=== PATIENT | male | born 1990 ===

== ENCOUNTER 2021-08-14 19:37 | Emergency (ER) | payer OTHER, SELFPAY ==
[2021-08-14] MEDS ORDERED: NA CHLORIDE 0.9% 1,000 ML ONE (19:53)
[2021-08-14 20:10] LABS: Basophils % 0.9 % (0-1.3); Hematocrit 43.1 % (39.6-49.0); Lymphocytes % 31.9 % (15.3-44.8); MPV 7.9 fL (7.6-11.3); RBC Red Blood Cell Count 4.91 M/uL (4.33-5.43)
[2021-08-14 20:28] LABS: ALT/SGPT 34 U/L (12-78); AST/SGOT 30 U/L (15-37); Albumin 3.9 g/dL (3.4-5.0); Alkaline Phosphatase 63 U/L (45-117); BUN Blood Urea Nitrogen 13 mg/dL (7-18); Bicarbonate 26 mmol/L (21-32); Bilirubin Direct 0.1 mg/dL (0-0.2); Bilirubin Total 0.5 mg/dL (0.2-1.0); Creatine Phosphokinase 397 U/L (39-308); Glucose Level 237 mg/dL (74-106); Potassium 3.5 mmol/L (3.5-5.1); Protein, Total 7.7 g/dL (6.4-8.2); Sodium Level 142 mmol/L (136-145)
--- NOTE | 2021-08-14 20:39 | RAD REPORT ---
EXAM DESCRIPTION: RAD - Chest Single View - 08/14/2021 8:26 pm CLINICAL HISTORY: AMS, possible overdose Chest pain. COMPARISON: No comparisons FINDINGS: Portable technique limits examination quality. The lungs are grossly clear. The heart is normal in size. No displaced fractures. IMPRESSION: No acute intrathoracic process suspected.
[2021-08-14 21:10] LABS: Protime INR 1.05
--- NOTE | 2021-08-14 21:43 | RAD REPORT ---
EXAM DESCRIPTION: CT - Head Brain Wo Cont - 08/14/2021 9:08 pm CLINICAL HISTORY: AMS, found unresponsive Headache, drowsiness COMPARISON: No comparisons TECHNIQUE: All CT scans are performed using dose optimization technique as appropriate and may inclu de automated exposure control or mA/KV adjustment according to patient size. FINDINGS: No intracranial hemorrhage, hydrocephalus or extra-axial fluid collection.No areas of brai n edema or evidence of midline shift. The paranasal sinuses and mastoids are clear. The calvarium is intact. IMPRESSION: No acute intracranial abnormality.
--- NOTE | 2021-08-14 22:23 | ER ---
Nurse's Notes [facility] Name: Cathy Kumari Age: 30 yrs Sex: Male : 1990 Arrival Date: 08/14/2021 Time: 19:38 Bed 20 Private MD: Diagnosis: Altered mental status, unspecified;Adverse effect of other drugs, medicaments and biological substances, initial encounter-Possible opiates Presentation: 08/14 19:57 Chief complaint: EMS states: pt was found unresponsive by a bystander who initiated 5 cpr. ems gave 4mg of narcan on scene. pt denies any drug use. Ebola Screen: Patient negative for fever greater than or equal to 101.5 degrees Fahrenheit, and additional compatible Ebola Virus Disease symptoms Patient denies exposure to infectious person. Patient denies travel to an Ebola-affected area in the 21 days before illness onset. No symptoms or risks identified at this time. 19:57 Method Of Arrival: EMS: [facility] 5 20:00 Chief complaint: EMS states: [facility] states that 30 y/o male was found kd3 unresponsive and not breathing. pt was bagged at the scene and given Narcan, pt then started breathing. pt was given Narcan x 3 in route for a total of 4 doses. pt vital signs stable, pt currently denies PMH or daily medications. Coronavirus screen: Vaccine status: Patient reports being unvaccinated. At this time, the client does not indicate any symptoms associated with coronavirus-19. Ebola Screen: Patient negative for fever greater than or equal to 101.5 degrees Fahrenheit, and additional compatible Ebola Virus Disease symptoms Patient denies exposure to infectious person. Patient denies travel to an Ebola-affected area in the 21 days before illness onset. No symptoms or risks identified at this time. 20:00 Method Of Arrival: EMS: [facility] kd3 20:02 Coronavirus screen: Vaccine status: Patient reports being unvaccinated. Initial Sepsis 5 Screen: Does the patient meet any 2 criteria? HR > 90 bpm. Does the patient have a suspected source of infection? No. Patient's initial sepsis screen is negative. Risk Assessment: Do you want to hurt yourself or someone else? Patient reports no desire to harm self or others. Onset of symptoms was August 14, 2021. Care prior to arrival: Medication(s) given: Normal saline infusion, 500 mL, 4mg narcan. 20:02 Acuity: JACKIE 3 sm5 Triage Assessment: 20:08 General: Appears in no apparent distress. drowsy . Behavior is calm, cooperative, kd3 appropriate for age. Pain: Denies pain. Historical: - Allergies: 20:10 No Known Allergies; kd3 - Home Meds: 20:12 None [Active]; kd3 - PMHx: 20:10 None; kd3 - PSHx: 20:12 None; kd3 - Immunization history:: Adult Immunizations up to date. - Family history:: not pertinent. - Social history:: Smoking status: Patient reports the use of cigarette tobacco products, denies chronic smoking, but will smoke occasionally. - Hospitalizations: : No recent hospitalization is reported. Screenin:03 Abuse screen: Denies threats or abuse. Denies injuries from another. Nutritional sm5 screening: No deficits noted. Tuberculosis screening: No symptoms or risk factors identified. Fall Risk No fall in past 12 months (0 pts). No secondary diagnosis (0 pts). IV access (20 points). Ambulatory Aid- None/Bed Rest/Nurse Assist (0 pts). Gait- Normal/Bed Rest/Wheelchair (0 pts) Mental Status- Oriented to own ability (0 pts). Total Hughes Fall Scale indicates No Risk (0-24 pts). Assessment: 20:04 General: Appears in no apparent distress. Behavior is drowsy. Pain: Denies pain. Neuro: sm5 Level of Consciousness is alert, Oriented to person, place, time, situation. Cardiovascular: Rhythm is regular. Respiratory: Airway is patent Trachea midline Respiratory effort is even, unlabored. GI: No deficits noted. 21:00 Reassessment: No changes from previously documented assessment. sm5 22:15 Reassessment: No changes from previously documented assessment. 5 Vital Signs: 19:57 BP 145 / 102; Pulse 97; Resp 15; Temp 97.4; Pulse Ox 99% ; Weight 57.61 kg; Height 5 sm5 ft. 5 in. (165.10 cm); 20:08 BP 135 / 97; Pulse 93; Resp 18; Pulse Ox 99% on R/A; kd3 20:42 BP 134 / 93; Pulse 97; Resp 15; Pulse Ox 100% on R/A; sm5 22:17 BP 136 / 91; Pulse 86; Resp 16; Pulse Ox 95% ; sm5 19:57 Body Mass Index 21.13 (57.61 kg, 165.10 cm) 5 ED Course: 19:38 Patient arrived in ED. rn 19:38 Adam Mas MD is Attending Physician. rn 19:57 Charito Monsalve, RN is Primary Nurse. sm5 19:58 Acetaminophen Sent. kd3 19:59 Basic Metabolic Panel Sent. kd3 19:59 CBC with Diff Sent. kd3 19:59 ETOH Level Sent. kd3 19:59 Hepatic Function Sent. kd3 19:59 PT-INR Sent. kd3 19:59 Ptt, Activated Sent. kd3 19:59 Salicylate Sent. kd3 20:03 Triage completed. sm5 20:04 No provider procedures requiring assistance completed. Maintain EMS IV. Dressing sm5 intact. Good blood return noted. Site clean \T\ dry. Gauge \T\ site: 18G L AC. 20:04 Patient has correct armband on for positive identification. Bed in low position. Call sm5 light in reach. Side rails up X2. 20:08 Arm band placed on right wrist. kd3 20:26 XRAY Chest (1 view) In Process Unspecified. EDMS 21:07 CT Head Brain wo Cont In Process Unspecified. EDMS 22:25 No apparent distress. Patient requests liquids. sm5 22:39 IV discontinued, intact, bleeding controlled, No redness/swelling at site. Pressure sm5 dressing applied. Administered Medications: 19:57 Drug: NS 0.9% 1000 ml Route: IV; Rate: 1000 ml; Site: left antecubital; sm5 22:40 Follow up: IV Status: Completed infusion; IV Intake: 1000ml sm5 Intake: 22:40 IV: 1000ml; Total: 1000ml. 5 Outcome: 22:22 Discharge ordered by . rn 22:38 Discharged to home ambulatory. sm5 22:38 Condition: stable 22:38 Discharge instructions given to patient, Instructed on discharge instructions, Demonstrated understanding of instructions. 22:40 Patient left the ED. 5 Signatures: Dispatcher [employer] EDMS Adam Mas MD MD rn Doucette, Kyli, RN RN kd3 Charito Monsalve RN RN 5 Corrections: (The following items were deleted from the chart) 20:33 19:59 URINE DRUG SCREEN+CHEM UR.LAB.BRZ drawn and sent. kd3 EDMS
--- NOTE | 2021-08-14 22:23 | EDPHYS ---
Physician Documentation [facility] Name: Cathy Kumari Age: 30 yrs Sex: Male : 1990 Arrival Date: 08/14/2021 Time: 19:38 Bed 20 Private MD: ED Physician Adam Mas HPI: 08/14 19:56 This 30 yrs old Unknown Male presents to ER via Unassigned with complaints of possible rn overdose. 19:57 The patient presents to the emergency department with a possible poisoning, Opiate. rn Associated signs and symptoms: Pertinent positives: decreased level of consciousness, Pertinent negatives: auditory hallucinations, loss of consciousness, palpitations, shortness of breath, visual hallucinations. Severity of symptoms: At their worst the symptoms were moderate in the emergency department the symptoms have improved. It is unknown whether or not the patient has had similar symptoms in the past. The patient has not recently seen a physician. per EMS, they were called out for decreased level of consciousness, was found to be breathing but minimally responsive, they were concerned of a possible overdose so tried Narcan, first dose did not do anything, second dose woke him up. Patient is awake and alert, denies any pain. Patient reports that the last thing he remembers was eating popcorn. Denies any drug use or exposure. States was smoking a cigarette earlier as well. Denies alcohol. Denies any recent illness or feeling ill.. Historical: - Allergies: 20:10 No Known Allergies; kd3 - Home Meds: 20:12 None [Active]; kd3 - PMHx: 20:10 None; kd3 - PSHx: 20:12 None; kd3 - Immunization history:: Adult Immunizations up to date. - Family history:: not pertinent. - Social history:: Smoking status: Patient reports the use of cigarette tobacco products, denies chronic smoking, but will smoke occasionally. - Hospitalizations: : No recent hospitalization is reported. ROS: 19:57 Constitutional: Negative for fever, chills, and weight loss, Eyes: Negative for injury, rn pain, redness, and discharge, ENT: Negative for injury, pain, and discharge, Neck: Negative for injury, pain, and swelling, Cardiovascular: Negative for chest pain, palpitations, and edema, Respiratory: Negative for shortness of breath, cough, wheezing, and pleuritic chest pain, Abdomen/GI: Negative for abdominal pain, nausea, vomiting, diarrhea, and constipation, Back: Negative for injury and pain, : Negative for injury, bleeding, discharge, and swelling, MS/Extremity: Negative for injury and deformity, Skin: Negative for injury, rash, and discoloration, Neuro: Negative for headache, weakness, numbness, tingling, and seizure. Exam: 19:50 ECG was reviewed by the Attending Physician. rn 19:57 Constitutional: This is a well developed, well nourished patient who is awake, alert, rn and in no acute distress. Head/Face: Normocephalic, atraumatic. Eyes: Pupils equal round and reactive to light, extra-ocular motions intact. No nystagmus ENT: Dry mucous membranes no tongue laceration Cardiovascular: Tachycardic, regular. No pulse deficits. Respiratory: No increased work of breathing, no retractions or nasal flaring. Abdomen/GI: Soft, non-tender Skin: Warm, dry, no cyanosis MS/ Extremity: Pulses equal, no cyanosis. Neurovascular intact. Full, normal range of motion. Equal circumference. Neuro: Awake and alert, GCS 15, oriented to person, place, time, and situation. Cranial nerves II-XII grossly intact. Motor strength 5/5 in all extremities. Sensory grossly intact. Vital Signs: 19:57 BP 145 / 102; Pulse 97; Resp 15; Temp 97.4; Pulse Ox 99% ; Weight 57.61 kg; Height 5 sm5 ft. 5 in. (165.10 cm); 20:08 BP 135 / 97; Pulse 93; Resp 18; Pulse Ox 99% on R/A; kd3 20:42 BP 134 / 93; Pulse 97; Resp 15; Pulse Ox 100% on R/A; sm5 22:17 BP 136 / 91; Pulse 86; Resp 16; Pulse Ox 95% ; sm5 19:57 Body Mass Index 21.13 (57.61 kg, 165.10 cm) 5 MDM: 19:38 Patient medically screened. rn 22:20 Differential diagnosis: Ingestion/exposure to opiate, unknown drug. Data reviewed: rn vital signs, nurses notes, lab test result(s), EKG, radiologic studies, CT scan, plain films, and as a result, I will discharge patient. Data interpreted: ui programmer: rate is 86 beats/min, rhythm is normal sinus rhythm, regular, with no ectopy, Interpretation: normal rate, normal rhythm, Pulse oximetry: on room air is 100 %. Interpretation: normal. Counseling: I had a detailed discussion with the patient and/or guardian regarding: the historical points, exam findings, and any diagnostic results supporting the discharge/admit diagnosis, lab results, radiology results, the need for outpatient follow up, to return to the emergency department if symptoms worsen or persist or if there are any questions or concerns that arise at home. Response to treatment: the patient's symptoms have markedly improved after treatment, the patient's condition has returned to base line, the patient is now symptom free, and as a result, I will discharge patient. Special discussion: I discussed with the patient/guardian in detail that at this point there is no indication for admission to the hospital. It is understood, however, that if the symptoms persist or worsen the patient needs to return immediately for re-evaluation. ED course: No acute findings on imaging or blood work. Patient is awake and alert. Patient is refusing drug screen. Continues to deny any drug use tonight but had a great response to Narcan. No other complaints. Will discharge home as patient is refusing further testing. 08/14 19:39 Order name: Acetaminophen; Complete Time: 20:52 08/14 19:39 Order name: Basic Metabolic Panel; Complete Time: 20: 08/14 19:39 Order name: CBC with Diff; Complete Time: 20:23 08/14 19:39 Order name: ETOH Level; Complete Time: 20: 08/14 19:39 Order name: Hepatic Function; Complete Time: 20:52 08/14 19:39 Order name: PT-INR; Complete Time: 21:10 08/14 19:39 Order name: Ptt, Activated; Complete Time: 21:10 08/14 19:39 Order name: Salicylate; Complete Time: 20:52 08/14 19:39 Order name: CK; Complete Time: 20:52 08/14 19:56 Order name: XRAY Chest (1 view); Complete Time: 20:52 08/14 20:23 Order name: CT Head Brain wo Cont; Complete Time: 21:55 08/14 19:39 Order name: EKG; Complete Time: 19:39 08/14 19:39 Order name: EKG - Nurse/Tech; Complete Time: 19:48 rn 08/14 19:39 Order name: IV Saline Lock; Complete Time: 19:48 rn 08/14 19:39 Order name: Labs collected and sent; Complete Time: 19:58 rn 08/14 19:39 Order name: Cardiac monitoring; Complete Time: 19:48 rn 08/14 19:39 Order name: O2 Sat Monitoring; Complete Time: 19:48 rn 08/14 20:19 Order name: Labs - recollect needed: blue top needed; Complete Time: 20:31 mw2 EC:50 Rate is 97 beats/min. Rhythm is regular. QRS [place] is Normal. QRS interval is normal. No rn Q waves. T waves are Normal. No ST changes noted. Clinical impression: Normal ECG. Interpreted by me. Reviewed by me. Administered Medications: 19:57 Drug: NS 0.9% 1000 ml Route: IV; Rate: 1000 ml; Site: left antecubital; 5 22:40 Follow up: IV Status: Completed infusion; IV Intake: 1000ml 5 Disposition Summary: 08/14/21 22:22 Discharge Ordered Location: Home rn Problem: new rn Symptoms: have improved rn Condition: Stable rn Diagnosis - Altered mental status, unspecified rn - Adverse effect of other drugs, medicaments and biological substances, initial rn encounter - Possible opiates(08/14/21 22:23) Followup: rn - With: Private Physician - When: As needed - Reason: Recheck today's complaints, Re-evaluation by your physician Discharge Instructions: - Discharge Summary Sheet rn - Accidental Drug Poisoning, Adult rn Forms: - Medication Reconciliation Form rn - Thank You Letter rn - Antibiotic corn husk baler - Prescription Opioid Use rn Signatures: Dispatcher [employer] EDMS Adam Mas MD MD rn [place], MyKena mw2 Florencia Lim RN RN 3 Charito Monsalve RN RN sm5 Corrections: (The following items were deleted from the chart) 20:33 19:39 URINE DRUG SCREEN+CHEM UR.LAB.BRZ ordered. EDMS EDMS 22:23 22:22 Adverse effect of other drugs, medicaments and biological substances, initial rn encounter rn
--- NOTE | 2021-08-15 07:06 | EKG ---
Test Date: 2021-08-14 Test Time: 19:45:36 Securities Lending Trader: JULIANA MEASUREMENT RESULTS: Intervals: Rate: 97 [place]: 142 QRSD: 88 QT: 344 QTc: 436 [place]: P: 57 NJ: 142 QRS: 60 T: 50 INTERPRETIVE STATEMENTS: Normal sinus rhythm Minimal voltage criteria for LVH, may be normal variant Borderline ECG No previous ECG available for comparison Electronically Signed On 08-15-21 07:04:31 ALGEBRA TEACHER by Paul Jacobo
== END 2021-08-14 22:40 | disposition home or self-care (01) ==
LOC: ER 19:37
DX: R41.82 Altered mental status, unspecified (principal); T50.995A Adverse effect of other drugs, medicaments and biological substances, initial encounter; Y92.9 Unspecified place or not applicable; F17.210 Nicotine dependence, cigarettes, uncomplicated
CPT/HCPCS: 36415; 70450; 71045; 80048; 80076; 80320; 80329; 82550; 85025; 85610; 85730; 93005; 96360; 96361; 99284; J7030